=== PATIENT | female | born 1940 | race Asian ===

== ENCOUNTER 2017-12-12 13:51 | Outpatient (CLI) | payer MEDICARE, OTHER | END 2017-12-12 23:59 | disposition short-term general hospital (02) | LOC: EMS 13:51 | PROVIDERS: ATTEND Surgery | DX: R42 Dizziness and giddiness (principal); R53.1 Weakness; R61 Generalized hyperhidrosis | CPT/HCPCS: A0425; A0427 ==

== ENCOUNTER 2020-04-28 23:38 | Emergency (ER) | payer MEDICARE, OTHER ==
--- NOTE | 2020-04-29 00:02 | ED Physician Documentation ---
PD HPI CHEST PAIN - Stated complaint Stated Complaint: CHEST DISCOMFORT - Chief complaint Chief Complaint: Cardiac - History obtained from History obtained from: Patient - History of Present Illness Timing - onset: Enter time (14:00) Timing - onset during: Light activity Timing - details: Intermittant Pain level max: 5 Pain level now: 2 Quality: Other (burning) Location: Substernal Radiation: Back Improved by: Nothing Worsened by: Other (no exacerbating factors) Associated symptoms: No: Shortness of air, Diaphoresis, Nausea, Vomiting, Palp itations Recently seen: Not recently seen - Additional information Additional information: c/o intermittent midline chest pain since 2 PM today that radiates to her back, described as burning. She attributes this to "heartburn" which she thinks is due to coffee. Review of Systems Constitutional: reports: Reviewed and negative Eyes: reports: Reviewed and negative Ears: reports: Reviewed and negative Nose: reports: Reviewed and negative Throat: reports: Reviewed and negative Cardiac: reports: Chest pain / pressure. denies: Palpitations, Pedal edema, Calf pain Respiratory: reports: Reviewed and negative GI: reports: Reviewed and negative : denies: Dysuria, Frequency Skin: reports: Reviewed and negative Musculoskeletal: reports: Reviewed and negative Neurologic: reports: Reviewed and negative PD PAST MEDICAL HISTORY - Past Medical History Past Medical History: Yes Cardiovascular: Hypertension - Past Surgical History Past Surgical History: No - Present Medications Home Medications: Ambulatory Orders Medication Instructions Recorded Confirmed Losartan [Cozaar] 50 mg PO DAILY 04/29/20 04/29/20 - Allergies Allergies/Adverse Reactions: Allergies Allergy/AdvReac Type Severity Reaction Status Date / Time No Known Drug Allergies Allergy Verified 04/29/20 01:08 - Living Situation Living Arrangement: reports: At home - Social History Does the pt smoke?: No Smoking Status: Never smoker Does the pt drink ETOH?: No Does the pt have substance abuse?: No - Immunizations Immunizations are current?: No - POLST Patient has POLST: No PD ED PE NORMAL - Vitals Vital signs reviewed: Yes - General General: Alert and oriented X 3, No acute distress, Well developed/nourished - HEENT HEENT: Moist mucous membranes - Neck Neck: Supple, no meningeal sign - Cardiac Cardiac: RRR, No murmur, No gallop, No rub - Respiratory Respiratory: No respiratory distress, Clear bilaterally - Abdomen Abdomen: Soft, Non tender, Non distended - Derm Derm: Normal color, Warm and dry - Extremities Extremities: No edema - Neuro Neuro: Alert and oriented X 3 Results - Vitals Vitals: Vital Signs - 24 hr 04/28/20 04/29/20 04/29/20 23:40 00:24 00:51 Temperature 36.4 C L Heart Rate 95 87 86 Respiratory 18 23 18 Rate Blood Pressure 230/115 H 246/104 H 233/86 H O2 Saturation 99 98 98 04/29/20 04/29/20 04/29/20 01:10 01:30 02:00 Temperature Heart Rate 85 84 82 Respiratory 18 20 26 H Rate Blood Pressure 206/114 H 206/114 H 193/92 H O2 Saturation 98 97 97 04/29/20 04/29/20 03:05 03:30 Temperature Heart Rate 83 85 Respiratory 25 H 25 H Rate Blood Pressure 200/96 H 189/87 H O2 Saturation 99 98 Oxygen O2 Source Room air - EKG (time done) No standard instances Rate: Rate (enter#) (92) Rhythm: NSR [place]: LAD Intervals: Normal SD QRS: Normal Ischemia: Non specific changes (borderline ST elevation III, avF; borderline ST depression V3, V4) - Labs Labs: Laboratory Tests 04/28/20 04/28/20 04/28/20 23:58 23:58 23:58 WBC 9.2 RBC 4.92 Hgb 15.8 Hct 46.6 MCV 94.7 MCH 32.1 H MCHC 33.9 RDW 11.5 L Plt Count 232 MPV 10.0 Neut # (Auto) 6.7 H Lymph # (Auto) 1.8 [place] # (Auto) 0.6 Eos # (Auto) 0.1 Baso # (Auto) 0.1 Absolute Nucleated RBC 0.00 Nucleated RBC % 0.0 PT 10.8 INR 0.9 APTT 27.1 Sodium 135 Potassium 3.8 Chloride 96 L Carbon Dioxide 27 Anion Gap 12.0 BUN 23 H Creatinine 1.0 Estimated GFR (MDRD) 54 L Glucose 178 H Calcium 10.2 Total Bilirubin 1.4 H AST 30 ALT 14 Alkaline Phosphatase 54 Troponin I High Sens Total Protein 8.9 H Albumin 4.4 Globulin 4.5 H Albumin/Globulin Ratio 1.0 Lipase 39 04/28/20 23:58 WBC RBC Hgb Hct MCV MCH MCHC RDW Plt Count MPV Neut # (Auto) Lymph # (Auto) [place] # (Auto) Eos # (Auto) Baso # (Auto) Absolute Nucleated RBC Nucleated RBC % PT INR APTT Sodium Potassium Chloride Carbon Dioxide Anion Gap BUN Creatinine Estimated GFR (MDRD) Glucose Calcium Total Bilirubin AST ALT Alkaline Phosphatase Troponin I High Sens 395.6 H* Total Protein Albumin Globulin Albumin/Globulin Ratio Lipase - Rads (name of study) chest xray Radiology: Prelim report reviewed, See rad report PD MEDICAL DECISION MAKING - ED course Complexity details: reviewed results, re-evaluated patient, considered differential, d/w patient ED course: Borderline ST changes on EKG with significantly elevated high sensitivity troponin. Both [facility] and [facility] have no appropriate beds available. [facility] initially reported no appropriate beds available but subsequently said they would look into possibly moving patients around for bed availability. However, did not hear back from [facility] for over an hour and thus [facility] contacted. I discussed the case with Dr. Bryson (cardiology sales contracts analyst), recommends ntg drip and heparin drip, recommends I d/w track grinder at [facility] for transfer. Departure - Departure Disposition: 02 Transfer Acute Care Hosp Clinical Impression: NSTEMI (non-ST elevated myocardial infarction) Condition: Stable Discharge Date/Time: 04/29/20 04:12
[2020-04-29] MEDS ORDERED: NITROGLYCERIN 2% PASTE TOP STA (00:06)
[2020-04-29] MEDS ORDERED: ASPIRIN CHEW 81 MG TABLET PO STA (00:16)
[2020-04-29 00:18] LABS: BASOPHILS # (AUTO) 0.1 10^3/uL (0.0-0.1); BASOPHILS % (AUTO) 0.5 %; EOSINOPHILS # (AUTO) 0.1 10^3/uL (0.0-0.7); EOSINOPHILS % (AUTO) 1.2 %; HGB - HEMOGLOBIN 15.8 g/dL (12.0-16.0); LYMPHOCYTES # (AUTO) 1.8 10^3/uL (1.5-3.5); LYMPHOCYTES % (AUTO) 19.2 %; MEAN CORPUSCULAR HEMOGLOBIN 32.1 pg (27.0-31.0); MEAN CORPUSCULAR HGB CONC 33.9 g/dL (32.0-36.0); MEAN CORPUSCULAR VOLUME 94.7 fL (81.0-99.0); MONOCYTES # (AUTO) 0.6 10^3/uL (0.0-1.0); MONOCYTES % (AUTO) 6.3 %; NEUTROPHILS # (AUTO) 6.7 10^3/uL (1.5-6.6); NEUTROPHILS % (AUTO) 72.3 %; PLT - PLATELET COUNT 232 10^3/uL (130-450); RED BLOOD COUNT 4.92 10^6/uL (4.20-5.40); RED CELL DISTRIBUTION WIDTH 11.5 % (12.0-15.0); WHITE BLOOD COUNT 9.2 x10^3/uL (4.8-10.8)
[2020-04-29 00:22] LABS: INR 0.9 (0.8-1.2); PT - PROTHROMBIN TIME 10.8 secs (9.9-12.6)
[2020-04-29 00:29] LABS: ALBUMIN 4.4 g/dL (3.2-5.5); BILIRUBIN,TOTAL 1.4 mg/dL (0.2-1.0); CALCIUM 10.2 mg/dL (8.5-10.3); PARTIAL THROMBOPLASTIN TIME 27.1 secs (24.9-33.3); TOTAL PROTEIN 8.9 g/dL (6.7-8.2)
[2020-04-29] MEDS ORDERED: NITROGLYCERIN 50 MG/250 ML 50 MG/250 ML BOTTLE IV STA (02:29)
[2020-04-29] MEDS ORDERED: HEPARIN 25,000 UNITS/500 ML PREMIX IV STA (02:32)
[2020-04-29] MEDS ORDERED: HEPARIN 25,000 UNITS/500 ML NS 25,000 UNIT/500 ML BAG IV ONE (02:56)
[2020-04-29] MEDS ORDERED: HEPARIN DRIP CARDIAC @ 12 UNITS/KG/HR IV SCH (04:00)
[2020-04-29] MEDS ORDERED: HEPARIN 25,000 UNITS/500 ML PREMIX IV SCH (04:00)
[2020-04-29 04:14] VITALS: BP 189/87
--- NOTE | 2020-04-29 09:16 | XRAY Report ---
PROCEDURE: Chest 1 View X-Ray INDICATIONS: chest pain TECHNIQUE: One view of the chest was acquired. COMPARISON: None. FINDINGS: Surgical changes and devices: None. Lungs and pleura: No pleural effusions or pneumothorax. Lungs are clear. Mediastinum: Mediastinal contours appear normal. Heart size is moderately increased. Bones and chest wall: No suspicious bony lesions. Overlying soft tissues appear unremarkable. IMPRESSION: Moderate cardiomegaly. Reviewed by: Willie Goncalves MD on 04/29/2020 9:15 AM PDT Approved by: Willie Goncalves MD on 04/29/2020 9:15 AM PDT Station ID: [id number]
== END 2020-04-29 04:12 | disposition short-term general hospital (02) ==
LOC: ED 23:38
DX: I21.4 Non-ST elevation (NSTEMI) myocardial infarction (principal); I11.9 Hypertensive heart disease without heart failure
CPT/HCPCS: 36415; 71045; 80053; 83690; 84484; 85025; 85610; 85730; 93005; 96374; 96375; 99284; 99285; A9270

== ENCOUNTER 2020-04-29 04:11 | Outpatient (CLI) | payer MEDICARE, OTHER | END 2020-04-29 04:12 | disposition short-term general hospital (02) | LOC: EMS 04:11 | PROVIDERS: ATTEND Surgery | DX: I21.4 Non-ST elevation (NSTEMI) myocardial infarction (principal) | CPT/HCPCS: A0425; A0426 ==

== ENCOUNTER 2020-05-30 12:32 | Outpatient (CLI) | payer MEDICARE, OTHER ==
[2020-05-30 14:20] VITALS: BP 152/80
--- NOTE | 2020-05-30 14:20 | SLEEP CARE CONSULTATION ---
Information from patient questionnaire entered by Shyann Fraga. I have reviewed and concur with the information entered by Shyann Fraga. This document represents the service I personally performed and the decisions made by , Le Vega ARNP. History of Present Illness Service Date and Time: 05/30/2020 1232 Reason for Visit: New patient Chief Complaint: reports: Unrefreshed sleep, Snoring, Excessive daytime sleepiness, Observed pauses in breathing. denies: Insomnia, Fatigue, Frequent awakenings at night Date of Onset: over a year Usual bedtime: 7-8 pm Time it takes to fall asleep: 5-10 mins Snores at night: Yes Observed to quit breathing while asleep: Yes Sleeps alone due to snoring: No (N/A) Number of times waking at night: 3 Reasons for waking at night: reports: Snoring, Gasping for air, Bathroom. denies: Choking Toss, Turn, or Twitch while sleeping: Yes Recalls having dreams: Yes Usually gets out of bed at: 6 am Feels refreshed in the morning: No Morning headache: Yes (sometimes) Sleepy or fatigued during the day: Yes Ever fallen asleep while driving: No Takes day naps: Yes (daily for about 1 hour) Dreams during day naps: Yes Prior sleep studies: No Additional HPI information: I had the pleasure of seeing MARIA G BEST today regarding the possibility of her having a sleep disorder. Her current complaints are snoring. She is accompanied by her daughter. Patient has limited Khmer understanding but with clarification through her daughter she voiced understanding of questions/information during the visit. She declined interpreting services. She has a history of loud snoring and waking up gasping for air. Her daughter has witnessed her pause in breathing during sleep. She has a history of hypertension, pre-diabetes, heart arrhythmia and recently evaluated for chest pain with angiogram. Her new salt operator requesting she have a sleep study. She is very sleepy during the day. Her son has sleep apnea and uses a CPAP machine. - Parasomnia Symptoms Ever been unable to move upon waking from sleep: Yes Walks in sleep: No Talks in sleep: No Ever acted out dreams in sleep: No Ever felt weak in the knees when startled or emotional: Yes Bothered by creepy, crawly, restless sensations in legs: Yes (during the day when trying to rest) Problems with memory or concentration: Yes (sometimes) Subjective Initial [place] Sleepiness Scale score: 24 (in 2020) Past Medical History Past Medical History: reports: Hypertension, Diabetes (prediabetes), Arthritis, GERD, Attention deficit, Other (recent angiogram, salt operator recommended sleep study). denies: Congestive Heart Failure, Coronary Heart Disease, Arrythmia, Hypothyroidism, Anemia, Anxiety, Depression, Mood disorder Social History The patient's occupation is a Not employed. Patient is / and lives in [place]. Have you smoked in the past 12 months: No Alcohol use: Yes Alcohol amount and frequency: occasional red wine Caffeine use: Yes Caffeine amount and frequency: 3 cups of coffee/stopped after angiogram Family History Family history of sleep disordered breathing: Yes (son has sleep apnea) Allergies and Home Medications Drug allergies reviewed: Yes (NKDA) Home medication list reviewed: Yes Allergy and home medication list: Atorvastatin 80 mg Lisinopril 2.5 mg Aspirin 81 mg Metroprolol succinate ER 25 mg Review of Systems Weight loss over past 5 years: 20 Cardiovascular: reports: high blood pressure, palpitations, chest pain, irregular heart rate or pulse, have to sleep sitting up Respiratory: reports: shortness of breath Gastrointestinal: reports: heartburn, difficulty swallowing, nausea, diarrhea Urinary: reports: urgency Neurological: reports: headaches, gait or balance problems, other (vertigo). denies: seizure, head trauma, speech dysfunction Psychiatric: denies: Attention Deficit Hyperactivity, anxiety, depression, mood disorder, claustrophobia Ear/Nose/Throat: reports: nose bleeds (rarely), wisdom teeth removed (part of them are gone). denies: nasal congestion, sinus problems, dry mouth/throat, injury to nose, tonsillectomy Endocrine: reports: unexplained weakness Musculoskeletal: reports: joint pain, mobility problems Immunologic: reports: allergies to food or environment Physical Exam Blood Pressure: 152/80 Cuff size: long Heart Rate: 62 O2 Saturation: 98 Height: 5 ft 2 in Weight: 189 lb Body Mass Index: 34.5 BMI Classification: Obese Neck circumference: 16.85 (inches) HEENT: No craniofacial malformation Nostrils: patent to airflow Turbinates: normal Septum: midline Mouth and throat: narrow oropharynx Soft palate: normal Hard palate: arched Uvula: normal Uvula visualization: 25% Mallampati Class III Tongue: enlarged in size with teeth starks on lateral edges Tonsils: 2+ Chin and jaw: normal size and position Neck: normal w/o lymphadenopathy or thyromegaly Heart: regular rate and rhythm, murmur Lungs: clear bilaterally Impression and Plan 1. Suspected Obstructive Sleep Apnea-Hypopnea Syndrome, as suggested by a history of loud and irregular snoring, observed cessation of breath while asleep, gasping or choking in sleep, morning headache, frequent awakening during the night, unrefreshed sleep, cognitive impairment, and excessive daytime sleepiness. I reviewed with patient that a narrow oropharynx and obesity are common predisposing factors for obstructive sleep apnea-hypopnea syndrome. I recommend proceeding to polysomnography to confirm the diagnosis and to assess severity. If the patient has significant sleep disordered breathing, a manual CPAP titration study will also be performed to find the optimal treatment pressure. I informed the patient of what the sleep studies involve and after some discussion, obtained agreement to proceed. The pathophysiology of obstructive sleep apnea-hypopnea syndrome was discussed with the patient and health risks of cardiovascular and cerebrovascular disease if not treated. AASM brochure for obstructive sleep apnea-hypopnea syndrome given and reviewed. Risks of drowsy driving discussed in detail and patient advised to avoid long distance driving and to ladle puller at the first sign of drowsiness. Patient agreed to plan. * Schedule polysomnography +- manual CPAP titration study. * Avoid long distance driving or driving when feeling sleepy. * Avoid alcohol, sedative and muscle relaxant around bedtime. * Attempt to lose weight. * Review instructions provided by trained office staff on how to prepare for the sleep study. * Return for follow-up after sleep study completed. Visit Type: In Office Time Spent with Patient (minutes): 33 Provider Statement: I spent 100% of the Face to Face Visit with the patient with greater than 50% spent counseling the patient and coordination of care.
== END 2020-05-30 12:33 | disposition home or self-care (01) ==
LOC: SC 12:32
PROVIDERS: ATTEND Nurse Practitioner Family
DX: G47.10 Hypersomnia, unspecified (principal); R06.83 Snoring; G47.8 Other sleep disorders; R06.81 Apnea, not elsewhere classified; I10 Essential (primary) hypertension; E66.9 Obesity, unspecified; Z68.34 Body mass index [BMI] 34.0-34.9, adult
CPT/HCPCS: 99204; G0463; 99212

== ENCOUNTER 2020-08-03 20:21 | Outpatient (CLI) | payer MEDICARE, OTHER | END 2020-08-03 20:22 | disposition home or self-care (01) | LOC: SC 20:21 | PROVIDERS: ATTEND Nurse Practitioner Family | DX: G47.33 Obstructive sleep apnea (adult) (pediatric) (principal); E66.9 Obesity, unspecified; Z68.34 Body mass index [BMI] 34.0-34.9, adult | CPT/HCPCS: 95810 ==

== ENCOUNTER 2020-08-13 14:41 | Outpatient (CLI) | payer MEDICARE, OTHER ==
--- NOTE | 2020-08-13 16:31 | SLEEP CARE CONSULTATION ---
Information from patient questionnaire entered by Myah Luevano. I have reviewed and concur with the information entered by Myah Luevano. This document represents the service I personally performed and the decisions made by me, Le Vega ARNP. History of Present Illness Service Date and Time: 08/13/2020 1441 Initial [place] Sleepiness Scale score: 24 (in 2020) Current [place] Sleepiness Scale score: 3 Additional HPI information: MARIA G BEST returns with friend or follow up and results of the recently performed polysomnography. I explained the pathophysiology behind obstructive sleep apnea. We then spent quite a bit of time discussing different treatment options. For mild obstructive sleep apnea, surgery and oral appliance are alternatives to nasal CPAP therapy but in moderate or severe cases, nasal CPAP is the most effective and reliable treatment. After some discussion, the patient opted to go with the nasal CPAP therapy. Nasal autoCPAP set at 4-15 cmH20 will be ordered with rationale explained. A manual titration study will be ordered if unable to find optimal pressure with office adjustments. I explained how CPAP machine works with sample devices GoodApril Dreamstation and [employer] [id number] and what to expect when using the machine. Using CPAP every night in order to get used to it was emphasized. Patient advised to put CPAP mask on before getting into bed so as not to fall asleep without CPAP. To assist acclimation to CPAP use, it could also be used for a short time during day while reading or watching TV. The patient was instructed to call the CPAP supplier to discuss any mechanical problem that may occur. If the mask given is uncomfortable or is difficult to keep on through the night even with adjustment, contact the CPAP supplier as many will replace with another mask style if notifi ed before 30 days. If snoring or perceives is not getting enough air or too much air from the machine, notify this office. Sleep Study - Results Type of Sleep Study: Polysomnography Prior sleep studies: No Polysomnography/Home Sleep Study results: IMPRESSION: The quality of the study is good. The patient had slightly reduced sleep efficiency due to several awakenings after the sleep onset. Despite moderate sleep fragmentation, the sleep architecture was normal. Respiratory monitoring showed severe obstructive sleep apnea-hypopnea (AHI = 34.3) associated with frequent arousals, oxyhemoglobin desaturation and moderate hypoxia (kalli oxygen saturation of 78%). Baseline oxygen saturation was normal. The patient did not sleep supine during this study (supine AHI = 0.0; non-supine = 35.07). Snore was loud in intensity. There was no significant periodic leg movement of sleep. Cardiac rhythm was normal sinus rhythm without significant arrhythmia. No abnormal behavior (parasomnia) observed during the night. Allergies and Home Medications Drug allergies reviewed: Yes (NKDA) Home medication list reviewed: Yes (no changes) Review of Systems Review of systems same as previous: Yes (no changes) Physical Exam Heart Rate: 67 O2 Saturation: 99 Height: 5 ft 2 in Weight: 188 lb Body Mass Index: 34.4 BMI Classification: Obese Impression and Plan 1. Obstructive Sleep Apnea-Hypopnea Syndrome, severe, with lowest oxygen saturation of 78%. Obviously this is the cause of the patients symptoms of unrefreshed sleep, and excessive daytime sleepiness. Patient is most comfortable in [employer] language, the hose tubing backer line for [employer] was used during the appointment, hose tubing backer Corby #[id number]. Patient voiced understanding through the hose tubing backer of condition and therapy choices. She voiced agreement to start CPAP therapy. Positive pressure therapy could benefit her hypertension, attention deficit, acid reflux and pre-diabetes. As mentioned above, the patient will be started on nasal autoCPAP therapy with pressure set at 4-15 cmH2O. Compliance guidelines also reviewed. A copy of compliance guidelines will be given for reference at check out. * Nasal auto CPAP therapy, pressure at 4-15 cm H2O. * Attempt to lose weight. * Avoid alcohol consumption near bedtime. * The patient is again cautioned about driving until sleepiness completely resolves. * Return one month after CPAP obtained. I will assess response to therapy and compliance at that time. Visit Type: In Office Other Participants: Other (friend) Location of Provider: Office Time Spent with Patient (minutes): 24 Provider Statement: I spent 100% of the Face to Face Visit with the patient with greater than 50% spent counseling the patient and coordination of care.
== END 2020-08-13 14:42 | disposition home or self-care (01) ==
LOC: SC 14:41
PROVIDERS: ATTEND Nurse Practitioner Family
DX: G47.33 Obstructive sleep apnea (adult) (pediatric) (principal); E66.9 Obesity, unspecified; Z68.34 Body mass index [BMI] 34.0-34.9, adult
CPT/HCPCS: 99213; G0463; 99212

== ENCOUNTER 2021-04-29 12:27 | Inpatient (IN) | payer MEDICARE, OTHER ==
--- NOTE | 2021-04-29 12:48 | ED Physician Documentation ---
PD HPI CHEST PAIN - Stated complaint Stated Complaint: CP/BACK PX - Chief complaint Chief Complaint: Cardiac - History obtained from History obtained from: Patient PD PAST MEDICAL HISTORY - Past Medical History Cardiovascular: Hypertension - Past Surgical History Past Surgical History: No - Present Medications Home Medications: Ambulatory Orders Medication Instructions Recorded Confirmed Losartan [Cozaar] 50 mg PO DAILY 04/29/20 04/29/20 - Allergies Allergies/Adverse Reactions: Allergies Allergy/AdvReac Type Severity Reaction Status Date / Time No Known Drug Allergies Allergy Verified 04/29/21 12:42 - Social History Does the pt smoke?: No Smoking Status: Never smoker Does the pt drink ETOH?: No Does the pt have substance abuse?: No - Immunizations Immunizations are current?: No - POLST Patient has POLST: No Results - Vitals Vitals: Vital Signs - 24 hr 04/29/21 12:33 Temperature 36.4 C L Heart Rate 150 H Respiratory 20 Rate Blood Pressure 120/107 H O2 Saturation 97 Oxygen O2 Source Room air
--- NOTE | 2021-04-29 13:02 | ED Physician Documentation ---
History of Present Illness - Stated complaint Stated Complaint: CP/BACK PX - Chief complaint Chief Complaint: Cardiac - Additonal information Additional information: 81-year-old female presents emergency department for evaluation of acute onset dyspnea as well as chest pain. Began this a.m. History is somewhat limited as she speaks Tagalog. Multiple attempts at the online career services officer failed as we could not keep a consistent connection. She does have a history of Hypertension. She reports this provider she had a visit for chest pain approximately 1 year ago. At the time of that visit she was transferred to [facility] for NSTEMI with initial trop 395 She presents with A. fib RVR rate of about 150. She is alert and normotensive. Previous ER visit for chest pain showed normal sinus rhythm. Meds: Plavix 75 mg daily, atorvastatin 80 mg, lisinopril 2.5 mg, 81 mg asa, 12.5 mg metoprolol XR daily. However pt is only in possession of the plavis, asa, and lisinopril Pt has in her possession a POLST form showing comfort care measures only Review of Systems Unable to obtain: Other (language barrier) Constitutional: denies: Fever, Chills Ears: reports: Reviewed and negative Nose: reports: Reviewed and negative Throat: reports: Reviewed and negative Cardiac: reports: Chest pain / pressure, Palpitations. denies: Pedal edema, Calf pain Respiratory: reports: Dyspnea. denies: Cough GI: reports: Nausea. denies: Abdominal Pain, Vomiting : reports: Reviewed and negative Skin: reports: Reviewed and negative Musculoskeletal: reports: Reviewed and negative Neurologic: reports: Reviewed and negative Psychiatric: reports: Reviewed and negative PD PAST MEDICAL HISTORY - Past Medical History Cardiovascular: Hypertension - Past Surgical History Past Surgical History: No - Present Medications Home Medications: Ambulatory Orders Medication Instructions Recorded Confirmed Losartan [Cozaar] 50 mg PO DAILY 04/29/20 04/29/20 - Allergies Allergies/Adverse Reactions: Allergies Allergy/AdvReac Type Severity Reaction Status Date / Time No Known Drug Allergies Allergy Verified 04/29/21 12:42 - Social History Does the pt smoke?: No Smoking Status: Never smoker Does the pt drink ETOH?: No Does the pt have substance abuse?: No - Immunizations Immunizations are current?: No - POLST Patient has POLST: No PD ED PE EXPANDED - General General: Alert, No acute distress - Cardiac Cardiac: Tachy, Irregularly irregular, Radial strong equal, Pedal strong equal, Cap refill < 2 sec. No: Murmur Present - Respiratory Respiratory: Clear to ausultation maciel. No: Distress, Labored - Abdomen Abdomen: Normal Bowel sounds. No: Tender to palpation - Derm Derm: Normal color, Warm and dry - Extremities Extremities: Normal. No: Deformity - Neuro Neuro: Alert and Oriented X 3, CNII-XII intact - GCS Eye Opening: Spontaneous Motor: Obeys Commands Verbal: Oriented Total: 15 Results - Vitals Vitals: Vital Signs - 24 hr 04/29/21 04/29/21 04/29/21 12:33 13:12 13:30 Temperature 36.4 C L Heart Rate 150 H 140 H 90 Respiratory 20 22 20 Rate Blood Pressure 120/107 H 129/60 145/80 H O2 Saturation 97 94 98 04/29/21 04/29/21 04/29/21 14:00 14:30 15:25 Temperature Heart Rate 112 H 97 90 Respiratory 19 20 24 Rate Blood Pressure 122/86 H 117/64 107/52 L O2 Saturation 99 98 97 04/29/21 15:30 Temperature Heart Rate 93 Respiratory 20 Rate Blood Pressure 141/70 H O2 Saturation 96 Oxygen O2 Source Room air - EKG (time done) 1237 Rate: Rate (enter#) (132) [place]: Normal Intervals: Prolonged QT QRS: Normal Ischemia: ST elevation c/w repol Compare to prior EKG: Changed from prior EKG Computer interpretation: Agree with computer (Previous EKG NSR; now atrial fib RVR) 1333 Rate: Rate (enter#) (100) Rhythm: Atrial fibrillation [place]: Other Intervals: Prolonged QT Ischemia: Non specific changes Compare to prior EKG: Changed from prior EKG (remains fib, slower rate) - Labs Labs: Laboratory Tests 04/29/21 04/29/21 04/29/21 12:54 12:54 13:13 WBC 8.6 RBC 4.69 Hgb 14.8 Hct 44.2 MCV 94.2 MCH 31.6 H MCHC 33.5 RDW 11.7 L Plt Count 236 MPV 10.3 Neut # (Auto) 5.5 Lymph # (Auto) 2.3 [place] # (Auto) 0.6 Eos # (Auto) 0.1 Baso # (Auto) 0.0 Absolute Nucleated RBC 0.00 Nucleated RBC % 0.0 PT 11.1 INR 1.0 Sodium Potassium Chloride Carbon Dioxide Anion Gap BUN Creatinine Estimated GFR (MDRD) Glucose Calcium Total Bilirubin AST ALT Alkaline Phosphatase Troponin I High Sens 83.2 H* B-Natriuretic Peptide Total Protein Albumin Globulin Albumin/Globulin Ratio Lipase Nasal Adenovirus (PCR) Nasal B. parapertussis DNA (PCR) Nasal Coronavir 229E PCR Nasal Coronavir HKU1 PCR Nasal Coronavir NL63 PCR Nasal Coronavir OC43 PCR Nasal Enterovir/Rhinovir PCR Nasal Influenza B PCR Nasal Influenza A PCR Nasal Parainfluen 1 PCR Nasal Parainfluen 2 PCR Nasal Parainfluen 3 PCR Nasal Parainfluen 4 PCR Nasal RSV (PCR) Nasal B.pertussis DNA PCR Nasal C.pneumoniae (PCR) [place]ama Human Metapneumo PCR Nasal M.pneumoniae (PCR) Nasal SARS-CoV-2 (PCR) 04/29/21 04/29/21 04/29/21 13:13 13:13 13:39 WBC RBC Hgb Hct MCV MCH MCHC RDW Plt Count MPV Neut # (Auto) Lymph # (Auto) [place] # (Auto) Eos # (Auto) Baso # (Auto) Absolute Nucleated RBC Nucleated RBC % PT INR Sodium 136 Potassium 4.2 Chloride 100 L Carbon Dioxide 24 Anion Gap 12.0 BUN 24 H Creatinine 1.2 H Estimated GFR (MDRD) 43 L Glucose 372 H Calcium 9.2 Total Bilirubin 1.5 H AST 29 ALT 17 Alkaline Phosphatase 52 Troponin I High Sens B-Natriuretic Peptide 137 H Total Protein 8.2 Albumin 4.0 Globulin 4.2 Albumin/Globulin Ratio 1.0 Lipase 36 Nasal Adenovirus (PCR) NOT DETECTED Nasal B. parapertussis DNA (PCR) NOT DETECTED Nasal Coronavir 229E PCR NOT DETECTED Nasal Coronavir HKU1 PCR NOT DETECTED Nasal Coronavir NL63 PCR NOT DETECTED Nasal Coronavir OC43 PCR NOT DETECTED Nasal Enterovir/Rhinovir PCR NOT DETECTED Nasal Influenza B PCR NOT DETECTED Nasal Influenza A PCR NOT DETECTED Nasal Parainfluen 1 PCR NOT DETECTED Nasal Parainfluen 2 PCR NOT DETECTED Nasal Parainfluen 3 PCR NOT DETECTED Nasal Parainfluen 4 PCR NOT DETECTED Nasal RSV (PCR) NOT DETECTED Nasal B.pertussis DNA PCR NOT DETECTED Nasal C.pneumoniae (PCR) NOT DETECTED [place] Human Metapneumo PCR NOT DETECTED Nasal M.pneumoniae (PCR) NOT DETECTED Nasal SARS-CoV-2 (PCR) NOT DETECTED 04/29/21 14:54 WBC RBC Hgb Hct MCV MCH MCHC RDW Plt Count MPV Neut # (Auto) Lymph # (Auto) [place] # (Auto) Eos # (Auto) Baso # (Auto) Absolute Nucleated RBC Nucleated RBC % PT INR Sodium Potassium Chloride Carbon Dioxide Anion Gap BUN Creatinine Estimated GFR (MDRD) Glucose Calcium Total Bilirubin AST ALT Alkaline Phosphatase Troponin I High Sens 129.3 H* B-Natriuretic Peptide Total Protein Albumin Globulin Albumin/Globulin Ratio Lipase Nasal Adenovirus (PCR) Nasal B. parapertussis DNA (PCR) Nasal Coronavir 229E PCR Nasal Coronavir HKU1 PCR Nasal Coronavir NL63 PCR Nasal Coronavir OC43 PCR Nasal Enterovir/Rhinovir PCR Nasal Influenza B PCR Nasal Influenza A PCR Nasal Parainfluen 1 PCR Nasal Parainfluen 2 PCR Nasal Parainfluen 3 PCR Nasal Parainfluen 4 PCR Nasal RSV (PCR) Nasal B.pertussis DNA PCR Nasal C.pneumoniae (PCR) [place] Human Metapneumo PCR Nasal M.pneumoniae (PCR) Nasal SARS-CoV-2 (PCR) - Rads (name of study) cxr Radiology: Final report received (Moderate cardiomegaly) PD MEDICAL DECISION MAKING - ED course Complexity details: reviewed old records, reviewed results, considered differential, d/w patient ED course: 81-year-old female who has a history of hypertension and NSTEMI approximately 1 year ago presents emergency department with acute onset chest pain and shortness of air. She was found to be in A. fib with RVR at a rate about 150. She was initially normotensive though did have some softening of the blood pressure about 20 minutes into the ER visit. After about 300 mils of saline she remained normotensive. She was given 10 mg of diltiazem which appropriately slowed her rate to the 90s and low 100s however she remained in fibrillation. Screening labs do show a moderate troponin elevation of 83. Repeat troponin is 120. Thislikely represents a demand ischemia given the RVR on presentation. Chest x-ray shows significant cardiomegaly. I have requested the records from [facility] given her hospitalization 1 year ago but have not yet received them. 1525: I have spoken on the phone with Dr. Cross Packer Inspector on-call with [facility] cardiology. He informed me that when patient was seen at [facility] last year for a myocardial infarction she did have coronary angiogram completed. At that time she did have balloon angioplasty of the OM vessel. Follow-up echocardiogram after the hospitalization showed a preserved ejection fraction of 60 to 65% with mild aortic stenosis and regurgitation as well as mild mitral valve regurgitation. Significant wall motion abnormalities were seen. Given the patient's new presentation for atrial fib with RVR he expects a modest troponin elevation. He would recommend admission of the patient to the hospital but does not feel that she needs transfer to [facility] at this time unless an echocardiogram showed significant wall motion abnormality or she had a markedly significant rise in her troponins. He would recommend at this time keeping the patient on Plavix as well as Eliquis but stopping her daily aspirin. 1530: I spoke with Dr. Kaye who graciously agrees to admit the patient. I have also discussed the plan with the patient and her son on the phone. Departure - Departure Disposition: 66 [facility] DC/Xfer Clinical Impression: Atrial fibrillation with RVR, Elevated troponin, History of ST elevation myocardial infarction (STEMI) Hypertension Qualifiers: Hypertension type: unspecified Qualified Code(s): I10 - Essential (primary) hypertension Discharge Date/Time: 04/29/21 16:34
[2021-04-29 13:03] LABS: BASOPHILS % (AUTO) 0.4 %; EOSINOPHILS # (AUTO) 0.1 10^3/uL (0.0-0.7); EOSINOPHILS % (AUTO) 1.4 %; HCT - HEMATOCRIT 44.2 % (37.0-47.0); HGB - HEMOGLOBIN 14.8 g/dL (12.0-16.0); LYMPHOCYTES # (AUTO) 2.3 10^3/uL (1.5-3.5); MEAN CORPUSCULAR HEMOGLOBIN 31.6 pg (27.0-31.0); MEAN CORPUSCULAR HGB CONC 33.5 g/dL (32.0-36.0); MEAN CORPUSCULAR VOLUME 94.2 fL (81.0-99.0); MEAN PLATELET VOLUME 10.3 fL (7.9-10.8); MONOCYTES # (AUTO) 0.6 10^3/uL (0.0-1.0); MONOCYTES % (AUTO) 6.9 %; NEUTROPHILS # (AUTO) 5.5 10^3/uL (1.5-6.6); NEUTROPHILS % (AUTO) 64.1 %; PLT - PLATELET COUNT 236 10^3/uL (130-450); RED BLOOD COUNT 4.69 10^6/uL (4.20-5.40); RED CELL DISTRIBUTION WIDTH 11.7 % (12.0-15.0); WHITE BLOOD COUNT 8.6 x10^3/uL (4.8-10.8)
[2021-04-29] MEDS: diltiaZEM INJ 5 MG/ML VIAL IVP STA ×2 (13:07→13:30)
[2021-04-29 13:10] LABS: PT - PROTHROMBIN TIME 11.1 secs (9.9-12.6)
[2021-04-29 13:32] LABS: BILIRUBIN,TOTAL 1.5 mg/dL (0.2-1.0); CALCIUM 9.2 mg/dL (8.5-10.3); CREATININE 1.2 mg/dL (0.4-1.0); POTASSIUM 4.2 mmol/L (3.5-5.0); TOTAL PROTEIN 8.2 g/dL (6.7-8.2)
--- NOTE | 2021-04-29 13:36 | XRAY Report ---
PROCEDURE: Chest 1 View X-Ray INDICATIONS: Chest Pain TECHNIQUE: One view of the chest was acquired. COMPARISON: Chest x-ray 04/29/2020 FINDINGS: Surgical changes and devices: None. Lungs and pleura: No pleural effusions or pneumothorax. There is mild increased vascularity. Mediastinum: Mediastinal contours appear normal. Heart size is enlarged. Bones and chest wall: No suspicious bony lesions. Overlying soft tissues appear unremarkable. IMPRESSION: Cardiomegaly and increased vascularity suggestive of edema. Reviewed by: Kathrine Gomes MD on 04/29/2021 1:35 PM PDT Approved by: Kathrine Gomes MD on 04/29/2021 1:35 PM PDT Station ID: [id number]
[2021-04-29 14:40] LABS: B. PARAPERTUSSIS- RESP PCR PAN NOT DETECTED; B. PERTUSSIS- RESP PCR PANEL NOT DETECTED; C. PNEUMONIAE- RESP PCR PANEL NOT DETECTED; CORONAVIRUS 229E-RESP PCR NOT DETECTED; CORONAVIRUS HKU1-RESP PCR NOT DETECTED; CORONAVIRUS NL63-RESP PCR NOT DETECTED; CORONAVIRUS OC43-RESP PCR NOT DETECTED; HUMAN METAPNEUMOVIRUS NOT DETECTED; INFLUENZA A- RESP PCR PANEL NOT DETECTED; INFLUENZA B - RESP PCR PANEL NOT DETECTED; M. PNEUMONIAE- RESP PCR PANEL NOT DETECTED; PARAINFLUENZA VIRUS 1 NOT DETECTED; PARAINFLUENZA VIRUS 2 NOT DETECTED; PARAINFLUENZA VIRUS 3 NOT DETECTED; PARAINFLUENZA VIRUS 4 NOT DETECTED; RHINOVIRUS/ENTEROVIRUS NOT DETECTED; RSV- RESP PCR PANEL NOT DETECTED; SARS-CoV-2 -RESP PCR PANEL NOT DETECTED
[2021-04-29] MEDS ORDERED: diltiaZEM INJ 5 MG/ML VIAL IVP STA (15:25)
[2021-04-29] MEDS ORDERED: SODIUM CHLORIDE FLUSH 0.9% 10 ML SYRINGE IVP PRN (15:41)
--- NOTE | 2021-04-29 15:56 | HISTORY & PHYSICAL EXAMINATION ---
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 She told work she did not feel well enough to go in. Does not endorse shortness of breath (but per ED notes did note shorntess of breath as well. (Covid mask may be interfering w/ understanding of that question) She notes she also has had some intermittent dizziness "since April". No nausea, no sweats, no jaw arm pain. In the ED she was found to be in afib RVR with HR intially 150. Otherwie hemodynamically stable w/ BP 122/86, RA sa02 99%. She received 10 mg IV cardizem followed by 5 mg IV cardizem and is now in aib w/ HR 80's. Initial troponin was 83.2 subsquent 129. BNP 127 She has known CAD with an NSTEMI last April. She is followed by [facility] cardiology Prior Echo last April EF 65%. She is supposed to be on ASA , Plavix, atorvastatin, Lisinopril and prn NTG, all of which she has been taking Obviously importantly she is to be on metoprolol (12.5mg XL noted on med list; but not in her supply of meds. Per the [email or web address] pharmacy she did have metoprolol filled /; 30 day supply. Not clear where that bottle is. Has received 1 dose of [employer] , due for #2 end of month. The ED staff spoke w/ DR May w/ [facility]; continue troponin curve; Cardiology advised; IF elevated OR especially if EF worse; transfer to [facility] for cardiac care Meanwhile. given CAD, new afib, NO triple therapy; continue Plavix (she is taking), add eliquis, STOP ASA continue beta harish. Pt does want to be full code (Per ED there was a POLST form with her "comfort measures", but she does seem to understand the question of would she want CPR/ intubation History - Past Medical History Cardiovascular: reports: Hypertension, Coronary artery disease, Other (NSTEMI 04/2020, followed by Dr Katy Marin, EF65% 04/24) Respiratory: reports: None Neuro: reports: None Endocrine/Autoimmune: reports: Other (no DM history) GI: reports: None HEENT: reports: Other (missing upper teeth) Psych: reports: None Musculoskeletal: reports: None MRSA Hx?: No - Past Surgical History General: reports: Other (denies any surgeries) - Family & Social History Family History Comment/Other[place] 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 worked for [employer] on [employer]. Has daughter RN in [place], and Son in [place] . Living arrangement: At home Living Situation: Alone - Substance History Use: Uses substance without health or social issues: NONE (denies hx ETOH or tobacco use nor illicits) - POLST Patient has POLST: No Meds/Allgy - Home Medications Home Medications: Ambulatory Orders Medication Instructions Recorded Confirmed Atorvastatin Calcium [Lipitor] 80 mg PO QPM 04/30/21 04/30/21 Clopidogrel [Plavix] 75 mg PO DAILY 04/30/21 04/30/21 Lisinopril [Zestril] 2.5 mg PO DAILY 04/30/21 04/30/21 Apixaban [Eliquis] 5 mg PO BID #60 tablet 05/01/21 Metoprolol Succinate [Toprol Xl] 25 mg PO DAILY #30 tablet 05/01/21 - Allergies Allergies/Adverse Reactions: Allergies Allergy/AdvReac Type Severity Reaction Status Date / Time No Known Drug Allergies Allergy Verified 04/29/21 12:42 Review of Systems - Constitutional Constitutional: denies: Fever, Chills, Diaphoresis, Weight gain, Weight loss - Eyes Eyes: denies: Field loss, Vision loss, Dipolpia - Cardiovascular Cariovascular: reports: Lightheadedness (as per HPI), Other (as per HPI) - Respiratory Respiratory: reports: SOB with exertion (as per HPI today). denies: Cough, Sputum production, Wheezing, Orthopnea - Gastrointestinal Gastrointestinal: reports: Change in bowel habits (several loose BM's today, usually no problem). denies: Abdominal pain, Abdominal distention - Genitourinary Genitourinary: denies: Dysuria, Frequency, Urgency - Musculoskeletal Musculoskeletal: reports: Back pain (only today with chest pain as per HPI), Other (Denies falls). denies: Joint pain - Integumentary Integumentary: denies: Rash - Neurological Neurological: reports: Other (no one sided weakness). denies: Headache, Memory problems, Slurred speech - Psychiatric Psychiatric: denies: Depression - Endocrine Endocrine: denies: Polyuria, Polydypsia, Polyphagia - Hematologic/Lymphatic Hematologic/Lymphatic: denies: Bleeding tendencies Exam - Vital Signs Reviewed Vital Signs: Yes Vital Signs: Vital Signs x48h Temp Pulse Resp BP Pulse Ox 04/29/21 15:30 93 20 141/70 H 96 04/29/21 15:25 90 24 107/52 L 97 04/29/21 14:30 97 20 117/64 98 04/29/21 14:00 112 H 19 122/86 H 99 04/29/21 13:30 90 20 145/80 H 98 04/29/21 13:12 140 H 22 129/60 94 04/29/21 12:33 36.4 C L 150 H 20 120/107 H 97 - Physical Exam General Appearance: positive: No acute distress, Alert, Other (very sweet older pac[place] woman, lying on stretcher , HOB ~ 30 degrees, awake, alert, able to communicate well enough in Kazakh to give history) Eyes Bilateral: positive: PERRL, EOMI ENT: positive: Pharynx nml, Other (ok lower teeth, only 1 upper tooth.). negative: Oral lesions Neck: negative: No JVD (not appreciable) Respiratory: positive: No respiratory distress, Breath sounds nml, Rales (very slight basilar inspiratory crackles). negative: Wheezes Cardiovascular: positive: Regular rate & rhythm, No gallop, Systolic murmur (3/6 holosystolic murmur), Friction rub Abdomen: positive: Nml bowel sounds (perhaps sighly hypoactive, obese /generous abdomen, no surgical scars) Back: positive: Other (no back pain currently on exam w/ palpation). negative: CVA tenderness (R), CVA tenderness (L) Skin: positive: Warm, Dry. negative: Skin rash Extremities: positive: Other (no pretibial edema). negative: Pedal edema Neurologic/Psychiatric: positive: Oriented x3, CN's nml (2-12) Conclusion/Plan - Problem List (1) Atrial fibrillation with RVR Conclusion/Plan: New ? related to ischemia, or ischemia related to afib rVR? Has not been on her metoprolol for ? how long REsume metoprolol was on 12.5mg which is rather low dose.; if bP /HR allow will push dose start w/ 12.5 [id number]; starting eliquis (per ED d/w [facility] cardiology) (2) Coronary artery disease Conclusion/Plan: known; as above, not clear yet if this is NSTEMI or demand ischemia next troponin 9p as noted if increaseing or EF worse on echo >> transfer to [facility] Echo ordered to eval if worse EF (65% last year) Exam/ findisngs not consisent w/ poor forward flow ASA stopping, continuing plavix, adding eliquis for afib (no triple tx per card iology) Resume beta harish (not sure if she misplaced bottle or what/ was filled /5 per HPI titrate as HR/BP allows for rate control and CAD continue statin (3) Elevated troponin Conclusion/Plan: ACS vs demand ischemia w/ afib RVR recheck at 9p as per ED d/w [facility] cardiology/ [facility]; if troponin continues to climb, OR echo w/ new LV dysfxn will transfer to [facility] continue betablocker. Per cardiology; no triple therapy (would other garrison be antiplatelet, anticoag for stroke prevention and ASA; Just plavix and eliquis per cardiolgy (4) Hyperglycemia Conclusion/Plan: no prior dx of DM ? hyperglycemia r/t NSTEMI fsbg/ mod dose SSI check A1C for further eval (5) Hypertension Conclusion/Plan: BP stable and controlled currently resuming and titrating BB holding ACEI in favor of rate control agent (unless echo w/poor EF which i dont anticipate Qualifiers: Hypertension type: unspecified Qualified Code(s): I10 - Essential (primary) hypertension - Lab Results Fish Bones: 04/30/21 05:27 04/30/21 05:27 - Diagnostic Imaging Results Diagnostic Imaging Results: positive: Final report reviewed Diagnostic Imaging Results Comments: CXR today; one view; no pleuraleffusion, cardiolmegaly, mild increased vascularity suggestive of edema - EKG Results EKG Interpreted Independently: Yes EKG Findings: atrial fibrillation , rate 100, nonspecific TW abnormalities c/w older - Other Other Results/Comments: compard w/ EKG 04/28/20; NSR then, V slight SARAH II, III,F then, w/ I, L 12 lead ED (initial tele strip not seen w/ RVR; 12 lead a 133 pm; Atrial fibrillation, rate ~ 100 Flat T I, and TWI L unchanged. abnl RWP c/w prior
[2021-04-29] MEDS: SODIUM CHLORIDE FLUSH 0.9% 10 ML SYRINGE IVP SCH (16:56)
[2021-04-29] MEDS: METOPROLOL TARTRATE 25 MG TABLET PO SCH ×2 (18:20→20:50)
[2021-04-29 20:21] LABS: ESTIMATED AVERAGE GLUCOSE 143 mg/dL (70-100); HEMOGLOBIN A1c% 6.6 % (4.27-6.07)
[2021-04-29] MEDS: INSULIN ASPART 300 UNIT/3 ML PEN SUBQ SCH (20:50)
[2021-04-29] MEDS: ATORVASTATIN 40 MG TABLET PO SCH (20:50)
[2021-04-29] MEDS: APIXABAN 5 MG TABLET PO SCH (20:50)
[2021-04-30] MEDS: SODIUM CHLORIDE FLUSH 0.9% 10 ML SYRINGE IVP SCH ×3 (01:15→16:26)
[2021-04-30 05:42] LABS: HCT - HEMATOCRIT 42.6 % (37.0-47.0); HGB - HEMOGLOBIN 14.1 g/dL (12.0-16.0); MEAN CORPUSCULAR HEMOGLOBIN 31.7 pg (27.0-31.0); MEAN CORPUSCULAR HGB CONC 33.1 g/dL (32.0-36.0); MEAN CORPUSCULAR VOLUME 95.7 fL (81.0-99.0); MEAN PLATELET VOLUME 10.3 fL (7.9-10.8); RED BLOOD COUNT 4.45 10^6/uL (4.20-5.40); RED CELL DISTRIBUTION WIDTH 11.9 % (12.0-15.0)
[2021-04-30 05:49] LABS: CALCIUM 9.4 mg/dL (8.5-10.3); CREATININE 0.9 mg/dL (0.4-1.0); POTASSIUM 4.4 mmol/L (3.5-5.0)
[2021-04-30] MEDS: INSULIN ASPART 300 UNIT/3 ML PEN SUBQ SCH ×3 (10:07→16:39)
[2021-04-30] MEDS: APIXABAN 5 MG TABLET PO SCH ×2 (10:07→20:07)
[2021-04-30] MEDS: CLOPIDOGREL 75 MG TABLET PO SCH (10:07)
[2021-04-30] MEDS: METOPROLOL TARTRATE 25 MG TABLET PO SCH ×2 (10:08→20:07)
--- NOTE | 2021-04-30 10:17 | PROVIDER PROGRESS NOTE ---
Subjective - Prog Note Date Prog Note Date: 04/30/21 Prog Note Time: 10:14 (seen early this morning) - Subjective Pt reports feeling: No change (no chest pain, no sob, no sweats, no jaw/arm pain) Current Medications - Current Medications Current Medications: Active Medications Generic Name Dose Route Start Last Admin Trade Name Freq PRN Reason Stop Dose Admin Apixaban 5 mg 04/29/21 21:00 04/30/21 10:07 Apixaban 5 Mg Tablet PO 5 mg BID AMINA Administration Atorvastatin Calcium 80 mg 04/29/21 21:00 04/29/21 20:50 Atorvastatin 40 Mg Tablet PO 80 mg QPM AMINA Administration Clopidogrel Bisulfate 75 mg 04/30/21 09:00 04/30/21 10:07 Clopidogrel 75 Mg Tablet PO 75 mg DAILY AMINA Administration Insulin Aspart 1 - 9 unit 04/29/21 21:00 04/30/21 10:07 Insulin Aspart 300 Unit/3 Ml Pen SUBQ Not Given 0800,1200,1700,2100 AMINA Protocol Metoprolol Tartrate 12.5 mg 04/29/21 17:00 04/30/21 10:08 Metoprolol Tartrate 25 Mg Tablet PO 12.5 mg BID AMINA Administration Sodium Chloride 10 ml 04/29/21 15:41 Sodium Chloride Flush 0.9% 10 Ml Syringe IVP PRN PRN NEEDED PER PROVIDER ORDERS Sodium Chloride 10 ml 04/29/21 17:00 04/30/21 10:10 Sodium Chloride Flush 0.9% 10 Ml Syringe IVP 10 ml 0100,0900,1700 AMINA Administration Losartan [Cozaar] 50 mg PO DAILY 04/29/20 Atorvastatin Calcium [Lipitor] 80 mg PO QPM 04/30/21 Clopidogrel [Plavix] 75 mg PO DAILY 04/30/21 Lisinopril [Zestril] 2.5 mg PO DAILY 04/30/21 Metoprolol Succinate [Toprol Xl] 12.5 mg PO DAILY 04/30/21 Objective - Vital Signs/Intake & Output Reviewed Vital Signs: Yes Vital Signs: Vital Signs x48h Temp Pulse Resp BP BP Pulse Ox 04/30/21 10:08 136/53 H 04/30/21 07:29 36.7 C 63 18 142/73 H 98 04/30/21 04:49 36.4 C L 80 18 140/74 H 97 Intake & Output: Intake & Output 04/27/21 04/28/21 04/29/21 04/30/21 23:59 23:59 23:59 23:59 Intake Total 536 480 Balance 536 480 - Objective General Appearance: positive: No acute distress, Alert, Other (lying in bed eating breakfast, expresses understanding (I also spoke w/ son and daughter in law RN this afternoon) Eyes Bilateral: positive: Normal inspection, Other ( wearing glasses) Neck: positive: Other (full neck, no carotid bruit, no JVD appreciated) Respiratory: positive: No respiratory distress, Breath sounds nml. negative: Rales ((compared 04/30 when she did have basilar crackles) Cardiovascular: positive: Regular rate & rhythm (REPEAT ekg THIS MORNING; NSR ate [address] ? st ELEVATION BY COMPUTER INFERIOR DOES NOT MEET CRITERIA (< 1MM) Since 04/29/21 afib no longer present), Systolic murmur (2-3 / 6 loudest RSB). negative: JVD present Peripheral Pulses: 2+ Radial (R), 2+ Radial (L) Abdomen: positive: Nml bowel sounds, No distention. negative: Tenderness Skin: positive: Warm, Dry (NO DIAPHORESIS). negative: Pallor Extremities: negative: Pedal edema - Lab Results Fish Bones: 04/30/21 05:27 04/30/21 05:27 Other Labs: Lab Results x24hrs 04/30/21 04/30/21 04/30/21 Range/Units 07:27 05:27 05:27 WBC 8.0 (4.8-10.8) x10^3/uL RBC 4.45 (4.20-5.40) 10^6/uL Hgb 14.1 (12.0-16.0) g/dL Hct 42.6 (37.0-47.0) % MCV 95.7 (81.0-99.0) fL MCH 31.7 H (27.0-31.0) pg MCHC 33.1 (32.0-36.0) g/dL RDW 11.9 L (12.0-15.0) % Plt Count 217 (130-450) 10^3/uL MPV 10.3 (7.9-10.8) fL Neut # (Auto) (1.5-6.6) 10^3/uL Lymph # (Auto) (1.5-3.5) 10^3/uL Randolph # (Auto) (0.0-1.0) 10^3/uL Eos # (Auto) (0.0-0.7) 10^3/uL Baso # (Auto) (0.0-0.1) 10^3/uL Absolute Nucleated RBC x10^3/uL Nucleated RBC % /100WBC PT (9.9-12.6) secs INR (0.8-1.2) Sodium (135-145) mmol/L Potassium (3.5-5.0) mmol/L Chloride (101-111) mmol/L Carbon Dioxide (21-32) mmol/L Anion Gap (6-13) BUN (6-20) mg/dL Creatinine (0.4-1.0) mg/dL Estimated GFR (MDRD) (>89) Glucose (70-100) mg/dL POC Whole Bld Glucose 135 H (70 - 100) mg/dL Estimat Average Glucose (70-100) mg/dL Hemoglobin A1c % (4.27-6.07) % Calcium (8.5-10.3) mg/dL Total Bilirubin (0.2-1.0) mg/dL AST (10-42) IU/L ALT (10-60) IU/L Alkaline Phosphatase (42-121) IU/L Troponin I High Sens 1867.9 H* (2.3-14.8) ng/L B-Natriuretic Peptide (5-100) pg/mL Total Protein (6.7-8.2) g/dL Albumin (3.2-5.5) g/dL Globulin (2.1-4.2) g/dL Albumin/Globulin Ratio (1.0-2.2) Lipase (22-51) U/L Nasal Adenovirus (PCR) Nasal B. parapertussis DNA (PCR) Nasal Coronavir 229E PCR Nasal Coronavir HKU1 PCR Nasal Coronavir NL63 PCR Nasal Coronavir OC43 PCR Nasal Enterovir/Rhinovir PCR Nasal Influenza B PCR Nasal Influenza A PCR Nasal Parainfluen 1 PCR Nasal Parainfluen 2 PCR Nasal Parainfluen 3 PCR Nasal Parainfluen 4 PCR Nasal RSV (PCR) Nasal B.pertussis DNA PCR Nasal C.pneumoniae (PCR) Adama Human Metapneumo PCR Nasal M.pneumoniae (PCR) Nasal SARS-CoV-2 (PCR) 04/30/21 04/29/21 04/29/21 Range/Units 05:27 22:04 20:48 WBC (4.8-10.8) x10^3/uL RBC (4.20-5.40) 10^6/uL Hgb (12.0-16.0) g/dL Hct (37.0-47.0) % MCV (81.0-99.0) fL MCH (27.0-31.0) pg MCHC (32.0-36.0) g/dL RDW (12.0-15.0) % Plt Count (130-450) 10^3/uL MPV (7.9-10.8) fL Neut # (Auto) (1.5-6.6) 10^3/uL Lymph # (Auto) (1.5-3.5) 10^3/uL Randolph # (Auto) (0.0-1.0) 10^3/uL Eos # (Auto) (0.0-0.7) 10^3/uL Baso # (Auto) (0.0-0.1) 10^3/uL Absolute Nucleated RBC x10^3/uL Nucleated RBC % /100WBC PT (9.9-12.6) secs INR (0.8-1.2) Sodium 140 (135-145) mmol/L Potassium 4.4 (3.5-5.0) mmol/L Chloride 103 (101-111) mmol/L Carbon Dioxide 27 (21-32) mmol/L Anion Gap 10.0 (6-13) BUN 21 H (6-20) mg/dL Creatinine 0.9 (0.4-1.0) mg/dL Estimated GFR (MDRD) 60 L (>89) Glucose 137 H (70-100) mg/dL POC Whole Bld Glucose 119 H (70 - 100) mg/dL Estimat Average Glucose (70-100) mg/dL Hemoglobin A1c % (4.27-6.07) % Calcium 9.4 (8.5-10.3) mg/dL Total Bilirubin (0.2-1.0) mg/dL AST (10-42) IU/L ALT (10-60) IU/L Alkaline Phosphatase (42-121) IU/L Troponin I High Sens 1421.6 H* (2.3-14.8) ng/L B-Natriuretic Peptide (5-100) pg/mL Total Protein (6.7-8.2) g/dL Albumin (3.2-5.5) g/dL Globulin (2.1-4.2) g/dL Albumin/Globulin Ratio (1.0-2.2) Lipase (22-51) U/L Nasal Adenovirus (PCR) Nasal B. parapertussis DNA (PCR) Nasal Coronavir 229E PCR Nasal Coronavir HKU1 PCR Nasal Coronavir NL63 PCR Nasal Coronavir OC43 PCR Nasal Enterovir/Rhinovir PCR Nasal Influenza B PCR Nasal Influenza A PCR Nasal Parainfluen 1 PCR Nasal Parainfluen 2 PCR Nasal Parainfluen 3 PCR Nasal Parainfluen 4 PCR Nasal RSV (PCR) Nasal B.pertussis DNA PCR Nasal C.pneumoniae (PCR) Adama Human Metapneumo PCR Nasal M.pneumoniae (PCR) Nasal SARS-CoV-2 (PCR) 04/29/21 04/29/21 04/29/21 Range/Units 14:54 13:39 13:13 WBC (4.8-10.8) x10^3/uL RBC (4.20-5.40) 10^6/uL Hgb (12.0-16.0) g/dL Hct (37.0-47.0) % MCV (81.0-99.0) fL MCH (27.0-31.0) pg MCHC (32.0-36.0) g/dL RDW (12.0-15.0) % Plt Count (130-450) 10^3/uL MPV (7.9-10.8) fL Neut # (Auto) (1.5-6.6) 10^3/uL Lymph # (Auto) (1.5-3.5) 10^3/uL Randolph # (Auto) (0.0-1.0) 10^3/uL Eos # (Auto) (0.0-0.7) 10^3/uL Baso # (Auto) (0.0-0.1) 10^3/uL Absolute Nucleated RBC x10^3/uL Nucleated RBC % /100WBC PT (9.9-12.6) secs INR (0.8-1.2) Sodium 136 (135-145) mmol/L Potassium 4.2 (3.5-5.0) mmol/L Chloride 100 L (101-111) mmol/L Carbon Dioxide 24 (21-32) mmol/L Anion Gap 12.0 (6-13) BUN 24 H (6-20) mg/dL Creatinine 1.2 H (0.4-1.0) mg/dL Estimated GFR (MDRD) 43 L (>89) Glucose 372 H (70-100) mg/dL POC Whole Bld Glucose (70 - 100) mg/dL Estimat Average Glucose (70-100) mg/dL Hemoglobin A1c % (4.27-6.07) % Calcium 9.2 (8.5-10.3) mg/dL Total Bilirubin 1.5 H (0.2-1.0) mg/dL AST 29 (10-42) IU/L ALT 17 (10-60) IU/L Alkaline Phosphatase 52 (42-121) IU/L Troponin I High Sens 129.3 H* (2.3-14.8) ng/L B-Natriuretic Peptide (5-100) pg/mL Total Protein 8.2 (6.7-8.2) g/dL Albumin 4.0 (3.2-5.5) g/dL Globulin 4.2 (2.1-4.2) g/dL Albumin/Globulin Ratio 1.0 (1.0-2.2) Lipase 36 (22-51) U/L Nasal Adenovirus (PCR) NOT DETECTED Nasal B. parapertussis DNA (PCR) NOT DETECTED Nasal Coronavir 229E PCR NOT DETECTED Nasal Coronavir HKU1 PCR NOT DETECTED Nasal Coronavir NL63 PCR NOT DETECTED Nasal Coronavir OC43 PCR NOT DETECTED Nasal Enterovir/Rhinovir PCR NOT DETECTED Nasal Influenza B PCR NOT DETECTED Nasal Influenza A PCR NOT DETECTED Nasal Parainfluen 1 PCR NOT DETECTED Nasal Parainfluen 2 PCR NOT DETECTED Nasal Parainfluen 3 PCR NOT DETECTED Nasal Parainfluen 4 PCR NOT DETECTED Nasal RSV (PCR) NOT DETECTED Nasal B.pertussis DNA PCR NOT DETECTED Nasal C.pneumoniae (PCR) NOT DETECTED Adama Human Metapneumo PCR NOT DETECTED Nasal M.pneumoniae (PCR) NOT DETECTED Nasal SARS-CoV-2 (PCR) NOT DETECTED 04/29/21 04/29/21 04/29/21 Range/Units 13:13 13:13 12:54 WBC (4.8-10.8) x10^3/uL RBC (4.20-5.40) 10^6/uL Hgb (12.0-16.0) g/dL Hct (37.0-47.0) % MCV (81.0-99.0) fL MCH (27.0-31.0) pg MCHC (32.0-36.0) g/dL RDW (12.0-15.0) % Plt Count (130-450) 10^3/uL MPV (7.9-10.8) fL Neut # (Auto) (1.5-6.6) 10^3/uL Lymph # (Auto) (1.5-3.5) 10^3/uL Randolph # (Auto) (0.0-1.0) 10^3/uL Eos # (Auto) (0.0-0.7) 10^3/uL Baso # (Auto) (0.0-0.1) 10^3/uL Absolute Nucleated RBC x10^3/uL Nucleated RBC % /100WBC PT (9.9-12.6) secs INR (0.8-1.2) Sodium (135-145) mmol/L Potassium (3.5-5.0) mmol/L Chloride (101-111) mmol/L Carbon Dioxide (21-32) mmol/L Anion Gap (6-13) BUN (6-20) mg/dL Creatinine (0.4-1.0) mg/dL Estimated GFR (MDRD) (>89) Glucose (70-100) mg/dL POC Whole Bld Glucose (70 - 100) mg/dL Estimat Average Glucose 143 H (70-100) mg/dL Hemoglobin A1c % 6.6 H (4.27-6.07) % Calcium (8.5-10.3) mg/dL Total Bilirubin (0.2-1.0) mg/dL AST (10-42) IU/L ALT (10-60) IU/L Alkaline Phosphatase (42-121) IU/L Troponin I High Sens 83.2 H* (2.3-14.8) ng/L B-Natriuretic Peptide 137 H (5-100) pg/mL Total Protein (6.7-8.2) g/dL Albumin (3.2-5.5) g/dL Globulin (2.1-4.2) g/dL Albumin/Globulin Ratio (1.0-2.2) Lipase (22-51) U/L Nasal Adenovirus (PCR) Nasal B. parapertussis DNA (PCR) Nasal Coronavir 229E PCR Nasal Coronavir HKU1 PCR Nasal Coronavir NL63 PCR Nasal Coronavir OC43 PCR Nasal Enterovir/Rhinovir PCR Nasal Influenza B PCR Nasal Influenza A PCR Nasal Parainfluen 1 PCR Nasal Parainfluen 2 PCR Nasal Parainfluen 3 PCR Nasal Parainfluen 4 PCR Nasal RSV (PCR) Nasal B.pertussis DNA PCR Nasal C.pneumoniae (PCR) Adama Human Metapneumo PCR Nasal M.pneumoniae (PCR) Nasal SARS-CoV-2 (PCR) 04/29/21 04/29/21 Range/Units 12:54 12:54 WBC 8.6 (4.8-10.8) x10^3/uL RBC 4.69 (4.20-5.40) 10^6/uL Hgb 14.8 (12.0-16.0) g/dL Hct 44.2 (37.0-47.0) % MCV 94.2 (81.0-99.0) fL MCH 31.6 H (27.0-31.0) pg MCHC 33.5 (32.0-36.0) g/dL RDW 11.7 L (12.0-15.0) % Plt Count 236 (130-450) 10^3/uL MPV 10.3 (7.9-10.8) fL Neut # (Auto) 5.5 (1.5-6.6) 10^3/uL Lymph # (Auto) 2.3 (1.5-3.5) 10^3/uL Randolph # (Auto) 0.6 (0.0-1.0) 10^3/uL Eos # (Auto) 0.1 (0.0-0.7) 10^3/uL Baso # (Auto) 0.0 (0.0-0.1) 10^3/uL Absolute Nucleated RBC 0.00 x10^3/uL Nucleated RBC % 0.0 /100WBC PT 11.1 (9.9-12.6) secs INR 1.0 (0.8-1.2) Sodium (135-145) mmol/L Potassium (3.5-5.0) mmol/L Chloride (101-111) mmol/L Carbon Dioxide (21-32) mmol/L Anion Gap (6-13) BUN (6-20) mg/dL Creatinine (0.4-1.0) mg/dL Estimated GFR (MDRD) (>89) Glucose (70-100) mg/dL POC Whole Bld Glucose (70 - 100) mg/dL Estimat Average Glucose (70-100) mg/dL Hemoglobin A1c % (4.27-6.07) % Calcium (8.5-10.3) mg/dL Total Bilirubin (0.2-1.0) mg/dL AST (10-42) IU/L ALT (10-60) IU/L Alkaline Phosphatase (42-121) IU/L Troponin I High Sens (2.3-14.8) ng/L B-Natriuretic Peptide (5-100) pg/mL Total Protein (6.7-8.2) g/dL Albumin (3.2-5.5) g/dL Globulin (2.1-4.2) g/dL Albumin/Globulin Ratio (1.0-2.2) Lipase (22-51) U/L Nasal Adenovirus (PCR) Nasal B. parapertussis DNA (PCR) Nasal Coronavir 229E PCR Nasal Coronavir HKU1 PCR Nasal Coronavir NL63 PCR Nasal Coronavir OC43 PCR Nasal Enterovir/Rhinovir PCR Nasal Influenza B PCR Nasal Influenza A PCR Nasal Parainfluen 1 PCR Nasal Parainfluen 2 PCR Nasal Parainfluen 3 PCR Nasal Parainfluen 4 PCR Nasal RSV (PCR) Nasal B.pertussis DNA PCR Nasal C.pneumoniae (PCR) Adama Human Metapneumo PCR Nasal M.pneumoniae (PCR) Nasal SARS-CoV-2 (PCR) Assessment/Plan - Problem List (1) Atrial fibrillation with RVR Impression: (1) Atrial fibrillation with RVR New afib on 04/29 presentation, rate controlled w/ dilt 10x 1, 5x 1 on 04/29 No further afib RVR NSR again this afternoon 04/30 ? related to ischemia, or ischemia related to afib rVR? (see #2) She was supposed to be on toprol XL 12.5 daily; it was not with her other prescribed pills in her bag REsumed metoprolol (12.5 bid tartrate to ensure tolerates 25 mg daily dose) no bradycardia Eliquis started yesterday (meets criteria for 5mg bid dose) [id number] (2) NSTEMI troponins peaked at 1867 this morning (1421 10pm last night>>1867>>1856.3 11:21 am echo; Moderate concentric LVH. No new WMA Normal EF 65-70%. Grade II diastolic dysfunction Moderate increase LA volume index, Moderate BHAKTI, moderate Aortic valve sclerosis; no Aortic stenosis, mild aortic regurg, no mitral stenosis d/w [facility]/ [facility] again today; No need to transfer, likely ok to d/c tomorrow Med management as follows continue betablocker dose increase as per #1, no ASA, continue Plavix, cont Eliquis for #1 If BP allows will resume her low dose ACEI as well. no triple therapy per cardiology (3) Coronary artery disease medical management as above [facility] said they will call patient for follow up (4) Hyperglycemia Conclusion/Plan: glucose 372 on presentation (? somehow dextrose in draw vs related to NSTEMI no DM, has been fine following FSBG 119, 135, 118, 103 A1C 6.6 ? hyperglycemia on admit betty r/t NSTEMI stop fsbg checks (5) Hypertension Conclusion/Plan: BP stable and controlled currently resuming and titrating BB held ACEI in favor of titrating BB has room to resume her 2.5 mg lisinopril; will do so Qualifiers: Hypertension type: unspecified Qualified Code(s): I1 (5) Hypertension Qualifiers: Hypertension type: unspecified Qualified Code(s): I10 - Essential (primary) hypertension
--- NOTE | 2021-04-30 10:50 | PHARMACY PROGRESS NOTE ---
- Best Possible Medication History Admit Date and Time: 04/29/21 4836 Processed by: Pharmacy Medication History completed: Yes Patient Interview: Completed Secondary Source(s): Prescription bottles (PATIENT BROUGHT IN MEDICATION BOTTLES ) As the person ultimately responsible for medication therapy, providers are able to order a medication from an existing home medication list in [facility] via the "Reconcile Routine" prior to Confirmation of that medication by senior administrator support. Such practice is discouraged except when the physician, in their clinical judgment, deems that a medical need exists for a medication without regard to previous use.
[2021-04-30] MEDS: ATORVASTATIN 40 MG TABLET PO SCH (20:07)
[2021-04-30] MEDS ORDERED: chlordiazePOXIDE 25 MG CAPSULE PO SCH (21:00)
[2021-05-01] MEDS: SODIUM CHLORIDE FLUSH 0.9% 10 ML SYRINGE IVP SCH ×2 (02:17→08:34)
[2021-05-01 07:28] VITALS: BP 132/70
[2021-05-01] MEDS: METOPROLOL SUCCINATE 25 MG TABLET PO SCH ×2 (07:29→08:35)
--- NOTE | 2021-05-01 07:37 | Discharge Plan ---
Discharge Plan Problem Reviewed?: Yes Disposition: Home, Self Care Condition: Stable Prescriptions: Apixaban [Eliquis] 5 mg PO BID #60 tablet Metoprolol Succinate [Toprol Xl] 25 mg PO DAILY #30 tablet Diet: Cardiac Activity Restrictions: no work til cardiologyapt Shower Restrictions: No Weight Bearing: Full Weight Health Concerns: NSTEMI (non ST segment of EKG elevation Myocardial infarction); meaning a heart attack that did not deeply affect the heart muscle or heart squeeze You came to the hospital after developing chest pain and shortness of breath on April 29. You already have known heart disease and are on the appropriate medications. You were found to have an irregular and rapid heart rate called atrial fibrillation. Also your heart enzymes were elevated (heart "leaks" a certain enzyme that we can measure when it is injured). Your heart rate was slowed down with medication and your symptoms improved. We followed your heart enzymes and they continued to climb, so you were kept in the hospital to monitor. Your EKG did not have findings suggesting deep heart muscle injury , with discussion with [facility] cardiology you did not need to be transferred as your echocardiogram fortunately showed normal heart wall function (Echo on 04/30 showed no new heart muscle wall abnormality and the heart chamber muscle is squeezing well still). Your heart enzymes peaked in the late day on 04/30 and were clearly declining by late night 04/30/early 05/01 This is still a heart attack (NSTEMI as above) Medical management adjusted as follows; -STOP ASA (because another blood thinner ; Eliquis added for atrial fibrillation; See below -Continue Plavix -Continue Metoprolol XL but at increased dose (you did not have your meto prolol in your bag so a new prescription was sent in case you misplaced it and were not taking it. Metoprolol XL 25mg daily (increased from your 12.5 mg half tablet dose) -Continue lisinopril 2.5 mg daily Rx for eliquis and Toprol (if you misplaced yours) sent to [facility] pharmacy [facility] cardiology will call you for follow up Take it easy until follow up Do not return to work until cleared by cardiology No Smoking: If you smoke, Please STOP! Call for help. Follow-up with: Tena Morrison PA [Primary Care Provider] -
--- NOTE | 2021-05-01 08:31 | DISCHARGE SUMMARY ---
Discharge Summary Admit Date: 04/29/21 Discharge Date: 05/01/21 Discharging Provider: Elsy Hillman Primary Care Provider: Dr Tena Morrison Code Status: Attempt Resuscitation Condition at Discharge: Stable Discharge Disposition: 01 Home, Self Care Discharge Facility Name: [facility] - DIAGNOSES Admission Diagnoses: chest pain shortness of breath Atrial fibrillation with rapid ventricular response history of CAD, hypertension, hyperlipidemia hyperglycemia elevated troponin Discharge Diagnoses with Status of Each Condition: chest pain and shortness of breath; resolved Atrial fibrillation w/ RVR; resolved Atrial fibrillation; reverted to NSR NSTEMI; medically managed CAD, HTN, hyperlipidemia; stable Hyperglycemia; resolved - HPI History of Present Illness: Ms Thomas is a saqib 81 yo tuval[place] woman 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 She told work she did not feel well enough to go in. Does not endorse shortness of breath (but per ED notes did note shorntess of breath as well. (Covid mask may be interfering w/ understanding of that question) She notes she also has had some intermittent dizziness "since April". No nausea, no sweats, no jaw arm pain. In the ED she was found to be in afib RVR with HR intially 150. Otherwie hemodynamically stable w/ BP 122/86, RA sa02 99%. She received 10 mg IV cardizem followed by 5 mg IV cardizem and is now in aib w/ HR 80's. Initial troponin was 83.2 subsquent 129. BNP 127 She has known CAD with an NSTEMI last April. She is followed by [facility] cardiology Prior Echo last April EF 65%. She is supposed to be on ASA , Plavix, atorvastatin, Lisinopril and prn NTG, all of which she has been taking Obviously importantly she is to be on metoprolol (12.5mg XL noted on med list; but not in her supply of meds. Per the [facility] pharmacy she did have metoprolol filled 8/5; 30 day supply. Not clear where that bottle is. Has received 1 dose of [employer] vaccine , due for #2 end of month. The ED staff spoke w/ DR May w/ [facility] cardiology; continue troponin curve; Cardiology advised; IF elevated OR especially if EF worse; transfer to [facility] for cardiac care Meanwhile. given CAD, new afib, NO triple therapy; continue Plavix (she is taking), add eliquis, STOP ASA continue beta harish. Pt does want to be full code (Per ED there was a POLST form with her "comfort measures", but she does seem to understand the question of would she want CPR/ intubatio - CONSULTS | PROCEDURES Consultations: informal phone consultations w/ [facility] cardiology Dr. Santana - HOSPITAL COURSE Hospital Course: 1) Atrial fibrillation with RVR New atrial fibrillation to rate of 150 on 04/29 presentation with chest pain and shortness of breath, no associated hypotension , rate controlled w/ dilt 10mg IV x1, and 5mg IVx 1 on 04/29 in ED Rate controlled thereafter, and did revert to NSR NSR again ? if afib related to ischemia, or ischemia related to afib rVR? (see #2) She was supposed to be on toprol XL 12.5 daily; it was not with her other prescribed pills in her bag tho 30 pills filled 04/09. Not clear if she wasnt taking Home dose was toprol XL 12.5 mg daily; was able to increase to 25 mg here and will be d/c'd to increase toprol dose to 25 no bradycardia HR 66-83 here Eliquis started yesterday (meets criteria for 5mg bid dose) [id number] (2) NSTEMI troponins modestly elevated 83.2 on presentation w/ AFib RVR troponin elevation proved to be NSTEMI w/ progressive increase peaked at 1867 early 04/30. stayed flat in 1800 range 04/30 and clearly declining late night 04/30- (1419 at 2:30 am 11/01) Symptoms resolved as above w/ afib rate control Echo 05/01; Moderate concentric LVH. No WMA (noted on prelim report; Normal EF 65%. Grade II diastolic dysfunction Moderate increase LA volume index, Moderate BHAKTI, moderate Aortic valve sclerosis with mild Aortic regurg; no Aortic stenosis, no mitral stenosis In touch with [facility] cardiology (Dr Temi Dee contacted from ED as well as on 04/30 ; No need to transfer given no new WMA, He advised add eliquis, continue Plavix, Toprol, statin NO ASA (i.e no triple therapy) until troponins peaked and declining Presentation symptoms did not recur Med management on d/c as follows continue Toprol XL increase as per #1 to 25mg daily (new Rx sent to [facility] pharmacy) NO ASA, STOP ASA , continue Plavix, continue atorvastatin Eliquis 5mg bid as above under #1 BP still permits her home dose ACEI; continues lisinopril 2.5 mg / day [facility] cardiology will call her for follow up with Dr Burns (and will call son Nestor as wll given some language barrier ) Patient advised not to return to work til cleared by Dr Burns (3) Coronary artery disease medical management as above [facility] cardiology will call patient for follow up (4) Hyperglycemia Conclusion/Plan: glucose 372 on presentation (? somehow dextrose in draw vs related to NSTEMI A1C 6.6 no DM, has been fine following FSBG 119, 135, 118, 103 ? hyperglycemia on admit weroley r/t NSTEMI stopped fsbg checks; no associated needs on follow up (5) Hypertension Conclusion/Plan: BP stable and controlled currently resuming and titrating BB held ACEI in favor of titrating BB has room to resume her 2.5 mg lisinopril; will do so > 30 minutes spent nievesingshania flood , educating patient on management plan, RN also helped w/ translation, contacted [facility] cardiology twice re: follow up - ALLERGIES Allergies/Adverse Reactions: Allergies Allergy/AdvReac Type Severity Reaction Status Date / Time No Known Drug Allergies Allergy Verified 04/29/21 12:42 - MEDICATIONS Home Medications: Ambulatory Orders Medication Instructions Recorded Confirmed Atorvastatin Calcium [Lipitor] 80 mg PO QPM 04/30/21 04/30/21 Clopidogrel [Plavix] 75 mg PO DAILY 04/30/21 04/30/21 Lisinopril [Zestril] 2.5 mg PO DAILY 04/30/21 04/30/21 Apixaban [Eliquis] 5 mg PO BID #60 tablet 05/01/21 Metoprolol Succinate [Toprol Xl] 25 mg PO DAILY #30 tablet 05/01/21 - PHYSICAL EXAM AT DISCHARGE General Appearance: positive: No acute distress, Alert, Other (pleasant; RN speaks Tagalog and translated my questions in detail to patient (she noted she did not get call from [facility] cardiology but evidently her Voice mail is full) Eyes Bilateral: positive: Normal inspection, Other (glasses) Respiratory: positive: Chest non-tender, No respiratory distress, Breath sounds nml. negative: Rales Cardiovascular: positive: Regular rate & rhythm, Systolic murmur (2/6 SM loudest RSB) Abdomen: positive: Non-tender, Nml bowel sounds, No distention, Other (obese) Skin: positive: Warm, Dry. negative: Diaphoresis Extremities: positive: Pedal edema Neurologic/Psychiatric: positive: Oriented x3, Motor nml, Mood/affect nml - LABS Result Diagrams: 04/30/21 05:27 04/30/21 05:27 - DIAGNOSTIC IMAGING Diagnostic Imaging Results: Final report reviewed Diagnostic Imaging Results Comments: Chest X ray 04/29; Cardiomegaly and increased vascularity suggestive of edema Echocardiogram Moderate LVH w/ normal systolic Fxn; EF 65 %. No regional WMA. Grade II diastolic dysfunction. moderately dilated LA. Sclerotic aortic valve w/ mild AR. pulmonary pressure could not be measured, but RV normal size and fxn. Mitral valve is mild-moderately sclerotic, Tricuspid regurg; trace. EKG; initial strips w/ RVR not available initial 12 lead after cardizem; atrial fibrillation rate ~ 100, abnormal R wave proression, early transition. Since EKG from 04/28/20 inferior Q's are new
[2021-05-01] MEDS: APIXABAN 5 MG TABLET PO SCH (08:34)
[2021-05-01] MEDS: CLOPIDOGREL 75 MG TABLET PO SCH (08:34)
[2021-05-01] MEDS ORDERED: METOPROLOL SUCCINATE 25 MG TABLET PO SCH (09:00)
[2021-05-01] MEDS ORDERED: lisinopriL 5 MG TABLET PO SCH (09:00)
== END 2021-05-01 10:50 | disposition home or self-care (01) | DRG 282 ==
LOC: ED 12:27 → MS2 15:41 → OBSVTOIN 22:41
PROVIDERS: ADMIT Nurse Practitioner; ATTEND Nurse Practitioner
DX: I48.91 Unspecified atrial fibrillation (principal); R77.8 Other specified abnormalities of plasma proteins; I25.2 Old myocardial infarction; I10 Essential (primary) hypertension; I21.4 Non-ST elevation (NSTEMI) myocardial infarction; I25.10 Atherosclerotic heart disease of native coronary artery without angina pectoris; Z20.822 Contact with and (suspected) exposure to COVID-19; E78.5 Hyperlipidemia, unspecified; R73.9 Hyperglycemia, unspecified; Z79.899 Other long term (current) drug therapy; Z79.01 Long term (current) use of anticoagulants; Z79.82 Long term (current) use of aspirin; I11.9 Hypertensive heart disease without heart failure
CPT/HCPCS: 36415; 71045; 80048; 80053; 83036; 83690; 83880; 84484; 85025; 85027; 85610; 87631; 93005; 93306; 96374; 96376; 99283; 99285; A9270; G0378; 0202U

== ENCOUNTER 2021-05-16 20:50 | Emergency (ER) | payer MEDICARE, OTHER ==
--- NOTE | 2021-05-16 21:18 | ED Physician Documentation ---
History of Present Illness - Stated complaint Stated Complaint: MOUTH BLEEDING - Chief complaint Chief Complaint: Heent - Additonal information Additional information: 81-year-old female comes to the emergency department for evaluation of bleeding in her mouth especially in the mornings after she brushes her teeth but also occasionally spontaneously through the day. She was seen in this emergency department on 29 April diagnosed with new onset A. fib with RVR and was admitted to the hospital for treatment and management of such. She was discharged on Eliquis 5 mg twice daily. She is also on Plavix. The patient is not having any melena or hematochezia. She is denying hematuria. She has no external bruising or bleeding on her skin. No petechiae. I have spoken with her [id number] who is a nurse as well as her son and jessenia piña are concerned about the bleeding and wanted her checked out to make sure there was nothing serious happening. The patient is denying chest pain or shortness of air and otherwise appears remarkably well Review of Systems Constitutional: denies: Fever, Chills Eyes: reports: Reviewed and negative Ears: reports: Reviewed and negative Nose: reports: Reviewed and negative Throat: reports: Other (Bleeding in her mouth) Cardiac: reports: Reviewed and negative Respiratory: reports: Reviewed and negative GI: reports: Reviewed and negative : reports: Reviewed and negative Skin: reports: Reviewed and negative PD PAST MEDICAL HISTORY - Past Medical History Cardiovascular: Hypertension, Coronary artery disease, Other (NSTEMI 04/2020, followed by Dr Katy Marin, EF65% 04/24) Respiratory: None Neuro: None Endocrine/Autoimmune: Other (no DM history) GI: None HEENT: Other (missing upper teeth) Psych: None Musculoskeletal: None - Past Surgical History Past Surgical History: No General: Other (denies any surgeries) - Present Medications Home Medications: Ambulatory Orders Medication Instructions Recorded Confirmed Atorvastatin Calcium [Lipitor] 80 mg PO QPM 04/30/21 05/16/21 Clopidogrel [Plavix] 75 mg PO DAILY 04/30/21 05/16/21 Lisinopril [Zestril] 2.5 mg PO DAILY 04/30/21 05/16/21 Apixaban [Eliquis] 5 mg PO BID #60 tablet 05/01/21 05/16/21 Metoprolol Succinate [Toprol Xl] 25 mg PO DAILY #30 tablet 05/01/21 05/16/21 Chlorhexidine Gluconate [Peridex] 15 ml MM BID #118 ml 05/16/21 - Allergies Allergies/Adverse Reactions: Allergies Allergy/AdvReac Type Severity Reaction Status Date / Time No Known Drug Allergies Allergy Verified 05/16/21 21:21 - Social History Does the pt smoke?: No Smoking Status: Never smoker Does the pt drink ETOH?: No Does the pt have substance abuse?: No - Immunizations Immunizations are current?: No - POLST Patient has POLST: No PD ED PE EXPANDED - General General: Alert, No acute distress, Well developed/nourished, Other (obese) - HEENT HEENT: Pharynx normal (No blood in the posterior oropharynx. No blood seen within the nares), Dental decay (Generally poor dentition with multiple missing teeth as well as teeth rotted to the gumline. Teeth 23-26 are present with significant gingival inflammation. No active bleeding noted in the mouth at the time of this exam), Oral lesions / sores. No: Left nares epistaxis - Neck Neck: Supple w/out meningeal sx. No: Adenopathy - Cardiac Cardiac: Irregularly irregular, Radial strong equal, Cap refill < 2 sec - Respiratory Respiratory: Clear to ausultation maciel. No: Distress, Labored - Abdomen Abdomen: Normal Bowel sounds. No: Tender to palpation - Neuro Neuro: Alert and Oriented X 3, CNII-XII intact - GCS Eye Opening: Spontaneous Motor: Obeys Commands Verbal: Oriented Total: 15 Results - Vitals Vitals: Vital Signs - 24 hr 05/16/21 21:05 Temperature 36.0 C L Heart Rate 72 Respiratory 16 Rate Blood Pressure 158/99 H O2 Saturation 99 Oxygen O2 Source Room air - Labs Labs: Laboratory Tests 05/16/21 21:28 WBC 8.0 RBC 4.28 Hgb 13.7 Hct 41.0 MCV 95.8 MCH 32.0 H MCHC 33.4 RDW 11.4 L Plt Count 186 MPV 9.9 Neut # (Auto) 4.7 Lymph # (Auto) 2.2 [place] # (Auto) 0.7 Eos # (Auto) 0.4 Baso # (Auto) 0.0 Absolute Nucleated RBC 0.00 Nucleated RBC % 0.0 PD MEDICAL DECISION MAKING - ED course Complexity details: reviewed results, considered differential, d/w patient, d/w family ED course: 81-year-old female who is on Coumadin presents the emergency department for evaluation of bleeding in her mouth especially in the morning after brushing but sometimes spontaneously as well. She is anticoagulated on Eliquis secondary to history of atrial fibrillation. There is no extensive bruising or bleeding on her skin, no melena, hematochezia or hematuria. On exam today she has no obvious bleeding from her mouth or gums. However she does have serious dental decay as well as gingivitis. A screening CBC was completed and is essentially unchanged from her recent discharge from the hospital. There is no thrombocytopenia. I discussed this case with the patient's son and [id number] who are also in nursing and discussed that it will be important in the long-term for her to see a dentist to address the dental decay and gingivitis. I have prescribed Peridex mouth rinse to help reduce the inflammation. Recommended soft bristle toothbrush. Emergent worrisome return precautions were discussed. Departure - Departure Disposition: 01 Home, Self Care Clinical Impression: Anticoagulated, Mouth bleeding, Dental decay Condition: Stable Record reviewed to determine appropriate education?: Yes Prescriptions: Chlorhexidine Gluconate [Peridex] 15 ml MM BID #118 ml Comments: Esteban was seen in the emergency department for concerns of bleeding in her mouth when she brushes her teeth but also sometimes spontaneously as well. She is on a medication called Eliquis which is an anticoagulant which is necessary because she has atrial fibrillation. This helps reduce the risk of her having strokes. On examination she does not have bruising or bleeding on the skin or surface of her body, she is not complaining of black or bloody stools or bloody urine. Her hemoglobin was rechecked here in the emergency department and is essentially unchanged from when she left the hospital about 2 weeks ago. Mid cause of her bleeding is from fairly significant dental disease. I do recommend that she use a soft bristle toothbrush and brush lightly. I am also prescribing a mouth rinse that she can use 2-3 times a day which can help reduce inflammation within the gums. It is going to be very important that she follow-up with a dentist as an outpatient. Teeth cleaning as well as removal of the decayed teeth can help reduce this bleeding in the future but this will have to be a thought out methodical approach Please return her immediately to the emergency department if she has complaints of black stools, bloody stools, blood in her urine, if she develops chest pain or has shortness of air
[2021-05-16 21:21] VITALS: BP 158/99
[2021-05-16 21:35] LABS: BASOPHILS % (AUTO) 0.4 %; EOSINOPHILS # (AUTO) 0.4 10^3/uL (0.0-0.7); EOSINOPHILS % (AUTO) 4.4 %; HGB - HEMOGLOBIN 13.7 g/dL (12.0-16.0); LYMPHOCYTES # (AUTO) 2.2 10^3/uL (1.5-3.5); LYMPHOCYTES % (AUTO) 27.4 %; MEAN CORPUSCULAR HGB CONC 33.4 g/dL (32.0-36.0); MEAN CORPUSCULAR VOLUME 95.8 fL (81.0-99.0); MEAN PLATELET VOLUME 9.9 fL (7.9-10.8); MONOCYTES # (AUTO) 0.7 10^3/uL (0.0-1.0); MONOCYTES % (AUTO) 8.9 %; NEUTROPHILS # (AUTO) 4.7 10^3/uL (1.5-6.6); NEUTROPHILS % (AUTO) 58.6 %; PLT - PLATELET COUNT 186 10^3/uL (130-450); RED BLOOD COUNT 4.28 10^6/uL (4.20-5.40); RED CELL DISTRIBUTION WIDTH 11.4 % (12.0-15.0)
== END 2021-05-16 22:04 | disposition home or self-care (01) ==
LOC: ED 20:50
DX: K02.9 Dental caries, unspecified (principal); Z79.01 Long term (current) use of anticoagulants; I48.91 Unspecified atrial fibrillation; I10 Essential (primary) hypertension
CPT/HCPCS: 36415; 85025; 99283